=== PATIENT | female | born 1995 | race Hispanic/Latino ===

== ENCOUNTER 2017-05-21 02:18 | Emergency (ER) | payer OTHER ==
[2017-05-21 02:32] VITALS: BP 103/68; PULSE 75; RESP 20; TEMP 97.9; O2SAT 100
--- NOTE | 2017-05-21 03:29 | C.PDOC ---
History Of Present Illness 21 year old female presents to the ED with complaints of left hip pain that is exacerbated by walking and movement beginning three days ago. Patient denies any trauma, numbness, weakness, or back pain. Time Seen by Provider: 05/21/17 02:28 Chief Complaint (Nursing): Hip Pain History Per: Patient History/Exam Limitations: no limitations Onset/Duration Of Symptoms: Days (3) Current Symptoms Are (Timing): Still Present Recent travel outside of the [place]: No Past Medical History Reviewed: Historical Data, Nursing Documentation, Vital Signs Vital Signs: Last Vital Signs Temp 97.9 F 05/21/17 02:26 Pulse 75 05/21/17 02:26 Resp 20 05/21/17 02:26 BP 103/68 05/21/17 02:26 Pulse Ox 100 05/21/17 07:23 Family History: States: Unknown Family Hx - Social History Hx Tobacco Use: No Hx Alcohol Use: No Hx Substance Use: No - Immunization History Hx Tetanus Toxoid Vaccination: No Hx Influenza Vaccination: No Hx Pneumococcal Vaccination: No Review Of Systems Constitutional: Negative for: Fever, Chills Cardiovascular: Negative for: Chest Pain, Palpitations Respiratory: Negative for: Cough, Shortness of Breath Gastrointestinal: Negative for: Nausea, Vomiting, Abdominal Pain, Diarrhea Musculoskeletal: Positive for: Other (left hip pain ) Neurological: Negative for: Weakness, Numbness Physical Exam - Physical Exam Appears: Non-toxic, No Acute Distress Skin: Warm, Dry, No Rash Head: Atraumatic, Normacephalic Eye(s): bilateral: Normal Inspection Oral Mucosa: Moist Neck: Normal ROM, Supple Chest: Symmetrical, No Deformity Cardiovascular: Rhythm Regular, No Rhythm Irregular, No Friction Rub, No Murmur Respiratory: Normal Breath Sounds, No Rales, No Rhonchi, No Stridor, No Wheezing Gastrointestinal/Abdominal: Soft, No Tenderness, No Distention, No Guarding, No Rebound, No Hernia (No inguinal or femoral hernia) Back: Normal Inspection, No CVA Tenderness, No Vertebral Tenderness, No Paraspinal Tenderness Extremity: Normal ROM (full rom ), No Tenderness, Capillary Refill (< 2 sec), Other (minimal tenderess to left inguinal region ) Neurological/Psych: Oriented x3, Normal Speech, Normal Motor, Normal Sensation Gait: Steady ED Course And Treatment O2 Sat by Pulse Oximetry: 100 (on RA) Pulse Ox Interpretation: Normal Medical Decision Making Medical Decision Making: Patient has normal exam with no tenderness. No hernia present. Patient is ambulatory without difficulty. Disposition - Disposition Referrals: Caesar Richardson MD [Medical Doctor] - Disposition: HOME/ ROUTINE Disposition Time: 03:27 Condition: GOOD Additional Instructions: Follow up with the medical doctor within 1-2 days without fail. Return if worsened. Prescriptions: Cyclobenzaprine [Flexeril] 5 mg PO TID #21 tab Naproxen [Naprosyn] 500 mg PO BID #20 tab Instructions: Hip Sprain (ED) - POA Present On Arrival: None - Clinical Impression Clinical Impression: Groin strain - Scribe Statement The provider has reviewed the documentation as recorded by the Scribrenzo Barrett All medical record entries made by the Medhatibrenzo were at my direction and personally dictated by me. I have reviewed the chart and agree that the record accurately reflects my personal performance of the history, physical exam, medical decision making, and the department course for this patient. I have also personally directed, reviewed, and agree with the discharge instructions and disposition.
== END 2017-05-21 03:38 | disposition home or self-care (01) ==
LOC: C.ER 02:18
DX: S39.011A Strain of muscle, fascia and tendon of abdomen, initial encounter (principal); X58.XXXA Exposure to other specified factors, initial encounter; Y92.9 Unspecified place or not applicable

== ENCOUNTER 2019-04-10 14:12 | Inpatient (IN) | payer OTHER | END 2019-04-13 17:30 | disposition home or self-care (01) | LOC: C.4M 04-12 00:37 → C.EROB 14:12 → C.4D 15:58 ==